=== PATIENT | female | born 1955 | race Caucasian/White ===

== ENCOUNTER 2017-02-13 16:11 | Emergency (ER) | payer SELFPAY ==
[~2017-02-13] VITALS: Ht 165.1 cm; Wt 43.1 kg
[~2017-02-13 16:11] MED LIST: ALBU2.5V36 PUFF; CEFU250 PO; CIP500 PO; CYC10 PO; HYDR-4309 PO; IBU600 PO; IBUP200C71 PO; IPRA14.76 IH; KET10 PO; LAN30PT PO; LOR5 PO; LOR5/325 PO; MULT-775 PO; MULT1CAP59 PO; NICO-180 TD; NO ROUTINE MEDS; OMEP-114 PO; ONDA4TAB PO; PANT40TA13 PO; PANT40TA65 PO; PER PO; PRED-314 PO; PRO25 PO; [UNRECOGNIZED DRUG - CODE] PO; [UNRECOGNIZED DRUG - CODE] TD
[2017-02-13 16:36] VITALS: BP 129/76
[2017-02-13] MEDS ORDERED: PENI-24 PO (16:40)
--- NOTE | 2017-02-13 16:55 | EKG ---
FACILITY: [facility] PATIENT NAME: ROMELIA AWAN : [id number] MR: [id number] V: [id number] EXAM DATE: ORDERING PHYSICIAN: JENNY VEGA TECHNOLOGIST: YUSUF Al Reason : SOB Blood Pressure : / mmHG Vent. Rate : 107 BPM Atrial Rate : 107 BPM P-R Int : 180 ms QRS Dur : 092 ms QT Int : 326 ms P-R-T Axes : 088 110 084 degrees QTc Int : 435 ms Sinus tachycardia Right axis deviation Pulmonary disease pattern Abnormal ECG When compared with ECG of 06-AUG-2016 14:57, Relatively unchanged Confirmed by TORRES HAQ ([id number]) on 02/14/2017 10:14:03 PM Referred By: SILVIA Confirmed By:TORRES HAQ
[2017-02-13 17:18] LABS: PLATELET COUNT, AUTOMATED 247 K/uL (150-450)
[2017-02-13] MEDS ORDERED: NS 0.9% 50 ML VIAL 100 ML ONE (17:51)
[2017-02-13] MEDS ORDERED: IOPAMIDOL 76% 75 ML INFUS BTL 75 ML ONE (17:51)
[2017-02-13] MEDS ORDERED: MORPHINE(*) 4 MG/ML SDV IVP ONE (18:55)
[2017-02-13] MEDS ORDERED: MORPHINE 4 MG/ML SYR IVP ONE (19:15)
--- NOTE | 2017-02-13 19:30 | ER Report ---
History and Physical Hx. of Stated Complaint: PT HAVING TROUBLE BREATHING, PAIN IN CHEST L SIDE, FELL SEVERAL DAYS AGO (GENET MEAD MD) Time Seen By MD: 16:08 (JENNY VEGA MD) HPI/ROS CHIEF COMPLAINT: Rib pain after fall HISTORY OF PRESENT ILLNESS: 62-year-old female history chronic pancreatitis presents with rib pain after a fall no head or neck trauma no loss consciousness complaints noted REVIEW OF SYSTEMS: Respiratory: No cough, no dyspnea. Cardiovascular: No chest pain, no palpitations. Gastrointestinal: No vomiting, no abdominal pain. Musculoskeletal: No back pain. Remainder of the 14 system rev: Yes (JENNY VEGA MD) Allergies: Coded Allergies: No Known Drug Allergies (Verified , 08/06/16) Home Meds Active Scripts Hydrocodone Bit/Acetaminophen (HYDROCODON-ACETAMINOPHEN 5-325) 1 Each Tablet, 1 EACH PO Q4H Y for PAIN, #20 TAB 0 Refills Prov:GENET MEAD MD 02/13/17 Reported Medications Penicillin V Potassium 500 Mg Tab (PENICILLIN V POTASSIUM 500 MG TAB) 500 Mg Tablet, 500 MG PO, TAB 02/13/17 Multivitamin (MULTIVITAMINS) 1 Each Capsule, 1 EACH PO QDAY, CAPSULE 08/06/16 Reviewed Nurses Notes: Yes Old Medical Records Reviewed: Yes (JENNY VEGA MD) Hx Smoking: Yes (1/2PPD) Smoking Status: Current: Every Day Smoker Hx Substance Use Disorder: No Hx Alcohol Use: Yes (GENET MEAD MD) Physical Exam General Appearance: The patient is alert, has no immediate need for airway protection and no current signs of toxicity. [ ] Eyes: Pupils equal and round no injection. Respiratory: Chest is non tender, lungs are clear to auscultation. Cardiac: regular rate and rhythm [ ] Gastrointestinal: Abdomen is soft and non tender, no masses, bowel sounds normal. Musculoskeletal: Neck: Neck is supple and non tender. Extremities have full range of motion and are non tender. Skin: No rashes or lesions. [ ] DIFFERENTIAL DIAGNOSIS: After history and physical exam differential diagnosis was considered for rib fracture versus contusion (JENNY VEGA MD) Medical Decision Making Data Points Laboratory Hematology Test 02/13/17 17:09 02/13/17 19:35 Red Blood Count 4.03 M/uL (4.17-5.56) Mean Corpuscular Volume 105.0 fL (80.0-96.0) Mean Corpuscular Hemoglobin 34.8 pg (26.0-33.0) Mean Corpuscular Hemoglobin Concent 33.2 g/dL (32.0-36.0) Red Cell Distribution Width 15.9 % (11.5-14.5) Mean Platelet Volume 6.7 fL (7.2-11.1) Neutrophils (%) (Auto) 82.1 % (39.4-72.5) Lymphocytes (%) (Auto) 5.1 % (17.6-49.6) Monocytes (%) (Auto) 12.3 % (4.1-12.4) Eosinophils (%) (Auto) 0.3 % (0.4-6.7) Basophils (%) (Auto) 0.2 % (0.3-1.4) Nucleated RBC Relative Count (auto) 0.0 /100WBC Neutrophils # (Auto) 6.3 K/uL (2.0-7.4) Lymphocytes # (Auto) 0.4 K/uL (1.3-3.6) Monocytes # (Auto) 0.9 K/uL (0.3-1.0) Eosinophils # (Auto) 0.0 K/uL (0.0-0.5) Basophils # (Auto) 0.0 K/uL (0.0-0.1) Nucleated RBC Absolute Count (auto) 0.00 K/uL Peripheral Blood Smear No Y/N D-Dimer Quantitative (PE/DVT) 1.55 ug/ml (0-0.50) Sodium Level 140 mmol/L (137-145) Potassium Level 3.9 mmol/L (3.5-5.0) Chloride Level 106 mmol/L (98-107) Carbon Dioxide Level 24 mmol/L (22-31) Blood Urea Nitrogen 5 mg/dl (7-18) Creatinine 0.60 mg/dl (0.52-1.04) Glomerular Filtration Rate Calc > 60.0 Random Glucose 110 mg/dl (75-110) Calcium Level 9.5 mg/dl (8.4-10.2) Total Bilirubin 0.4 mg/dl (0.2-1.3) Aspartate Amino Transf (AST/SGOT) 25 U/L (0-35) Alanine Aminotransferase (ALT/SGPT) 39 U/L (0-56) Alkaline Phosphatase 201 U/L (0-126) Troponin I < 0.012 ng/ml B-Type Natriuretic Peptide 81 pg/ml (0-100) Total Protein 7.2 gm/dl (6.3-8.2) Albumin 3.4 g/dl (3.5-5.0) Urine Color Straw Urine Clarity Clear Urine pH 6.0 pH (4.8-9.5) Urine Specific [place] 1.026 Urine Protein Negative mg/dL (NEGATIVE) Urine Glucose (UA) Negative mg/dL (NEGATIVE) Urine Ketones Negative mg/dL (NEGATIVE) Urine Blood Negative (NEGATIVE) Urine Nitrite Negative (NEGATIVE) Urine Bilirubin Negative (NEGATIVE) Urine Urobilinogen Negative mg/dL (0.2-1.9) Urine Leukocyte Esterase Negative (NEGATIVE) Urine RBC None /HPF (0-2/HPF) Urine WBC 4 /HPF (0-5/HPF) Urine Squamous Epithelial Cells Few /LPF (</=FEW) Urine Bacteria Negative /HPF (NONE-FEW) Urine Mucus None /HPF (NONE-FEW) Chemistry Test 02/13/17 17:09 02/13/17 19:35 White Blood Count 7.6 k/uL (4.5-11.0) Red Blood Count 4.03 M/uL (4.17-5.56) Hemoglobin 14.0 g/dL (12.0-16.0) Hematocrit 42.3 % (34.0-47.0) Mean Corpuscular Volume 105.0 fL (80.0-96.0) Mean Corpuscular Hemoglobin 34.8 pg (26.0-33.0) Mean Corpuscular Hemoglobin Concent 33.2 g/dL (32.0-36.0) Red Cell Distribution Width 15.9 % (11.5-14.5) Platelet Count 247 K/uL (150-450) Mean Platelet Volume 6.7 fL (7.2-11.1) Neutrophils (%) (Auto) 82.1 % (39.4-72.5) Lymphocytes (%) (Auto) 5.1 % (17.6-49.6) Monocytes (%) (Auto) 12.3 % (4.1-12.4) Eosinophils (%) (Auto) 0.3 % (0.4-6.7) Basophils (%) (Auto) 0.2 % (0.3-1.4) Nucleated RBC Relative Count (auto) 0.0 /100WBC Neutrophils # (Auto) 6.3 K/uL (2.0-7.4) Lymphocytes # (Auto) 0.4 K/uL (1.3-3.6) Monocytes # (Auto) 0.9 K/uL (0.3-1.0) Eosinophils # (Auto) 0.0 K/uL (0.0-0.5) Basophils # (Auto) 0.0 K/uL (0.0-0.1) Nucleated RBC Absolute Count (auto) 0.00 K/uL Peripheral Blood Smear No Y/N D-Dimer Quantitative (PE/DVT) 1.55 ug/ml (0-0.50) Glomerular Filtration Rate Calc > 60.0 Calcium Level 9.5 mg/dl (8.4-10.2) Total Bilirubin 0.4 mg/dl (0.2-1.3) Aspartate Amino Transf (AST/SGOT) 25 U/L (0-35) Alanine Aminotransferase (ALT/SGPT) 39 U/L (0-56) Alkaline Phosphatase 201 U/L (0-126) Troponin I < 0.012 ng/ml B-Type Natriuretic Peptide 81 pg/ml (0-100) Total Protein 7.2 gm/dl (6.3-8.2) Albumin 3.4 g/dl (3.5-5.0) Urine Color Straw Urine Clarity Clear Urine pH 6.0 pH (4.8-9.5) Urine Specific [place] 1.026 Urine Protein Negative mg/dL (NEGATIVE) Urine Glucose (UA) Negative mg/dL (NEGATIVE) Urine Ketones Negative mg/dL (NEGATIVE) Urine Blood Negative (NEGATIVE) Urine Nitrite Negative (NEGATIVE) Urine Bilirubin Negative (NEGATIVE) Urine Urobilinogen Negative mg/dL (0.2-1.9) Urine Leukocyte Esterase Negative (NEGATIVE) Urine RBC None /HPF (0-2/HPF) Urine WBC 4 /HPF (0-5/HPF) Urine Squamous Epithelial Cells Few /LPF (</=FEW) Urine Bacteria Negative /HPF (NONE-FEW) Urine Mucus None /HPF (NONE-FEW) Coagulation Test 02/13/17 17:09 D-Dimer Quantitative (PE/DVT) 1.55 ug/ml Urinalysis Test 02/13/17 19:35 Urine Color Straw Urine Clarity Clear Urine pH 6.0 pH (4.8-9.5) Urine Specific [place] 1.026 Urine Protein Negative mg/dL (NEGATIVE) Urine Glucose (UA) Negative mg/dL (NEGATIVE) Urine Ketones Negative mg/dL (NEGATIVE) Urine Blood Negative (NEGATIVE) Urine Nitrite Negative (NEGATIVE) Urine Bilirubin Negative (NEGATIVE) Urine Urobilinogen Negative mg/dL (0.2-1.9) Urine Leukocyte Esterase Negative (NEGATIVE) Urine RBC None /HPF (0-2/HPF) Urine WBC 4 /HPF (0-5/HPF) Urine Squamous Epithelial Cells Few /LPF (</=FEW) Urine Bacteria Negative /HPF (NONE-FEW) Urine Mucus None /HPF (NONE-FEW) (JENNY EVGA MD) EKG/Imaging Imaging EXAMINATION: Chest 2 Views HISTORY: Shortness of breath COMPARISON: 08/06/2016. FINDINGS: The lungs are hyperinflated with emphysematous change and mild chronic interstitial prominence. No focal consolidation or pleural effusion. No pneumothorax. Normal heart size and pulmonary vascularity. Aortic calcification. No acute osseous findings in the chest. IMPRESSION: 1. No evidence of acute cardiopulmonary disease. 2. Stable chronic changes of COPD. Report Dictated By: Royce Pearl MD at 02/13/2017 7:30 PM EXAMINATION: CTA of the chest with IV contrast HISTORY: Left-sided rib pain. Chest pain and shortness of breath. TECHNIQUE: Pulmonary embolus protocol - Thin axial CT images of the chest were obtained with IV contrast during maximal pulmonary arterial opacification. Reconstruction of the source data includes multiplanar 2D coronal and sagittal reconstructed images, and 3D coronal and sagittal MIP images. Telecommunications Clerk images have been stored on PACS. One of the following dose optimization techniques was utilized in the performance of this exam: Automated exposure control; adjustment of the mA and/ or kV according to the patient's size; or use of an iterative reconstruction technique. Specific details can be referenced in the facility's radiology CT exam operational policy. Contrast: 75 mL of IV Isovue-370. COMPARISON: 04/08/2015. FINDINGS: Pulmonary arteries: The pulmonary arteries are well opacified, without suspicious filling defect. Heart, aorta, and great vessels: Normal caliber thoracic aorta. Normal heart size. No pericardial effusion. Lungs and pleura: Moderate changes of centrilobular emphysema in the mid and upper lungs. There is slight scarring or atelectasis along the posterior aspect of the left upper lobe and lingula. No suspicious focal consolidation. No pleural effusion or pneumothorax. Single 4 mm subpleural nodule in the left lower lobe. On the previous exam there was a larger 6 mm nodule in this location , and this may represent a small residual postinflammatory focus. Mediastinum and mary grace: Negative. Visualized upper abdomen: Partially visualized changes of chronic calcific pancreatitis with multiple parenchymal calcifications. There is some increased peripancreatic stranding along the visualized pancreatic body and tail. Chest wall: Negative. Bones: No acute osseous findings in the chest. IMPRESSION: 1. No evidence of pulmonary embolism. 2. No other acute findings in the chest. 3. Imaging through the upper abdomen demonstrates changes of chronic calcific pancreatitis. There is some increased stranding along the visualized pancreatic body and tail which should be correlated with any clinical and/or laboratory evidence for superimposed acute pancreatitis. 4. Moderate emphysematous changes in the lungs. 5. A 4 mm nodule in the left lower lobe has decreased in size since 2016 and should be benign. Report Dictated By: Royce Pearl MD at 02/13/2017 7:21 PM (GENET MEAD MD) ED Course/Re-evaluation ED Course I assumed care of this patient at shift change from Dr. Vega. Patient is a 61 year old female with difficulty breathing and left sided chest pain. She did have a fall a few days ago. CTA of the chest was done due to elevated d-dimer. CTA did not show a PE or other acute cardiopulmonary process. There are changes present showing inflammation in the pancreas. She does have chronic pancreatitis with a recent increase in pain. We talked about it and she has pain that has been bothering her, but expected due to recent dietary intake. She did not think further workup was needed at this time as she does deal with this frequently. The chest pain could be from her recent fall or could be inflammatory pleuritic. Will treat with pain medicine and give time to improve. Decision to Disposition Date: Feb 13, 2017 Decision to Disposition Time: 19:43 (GENET MEAD MD) ED Course Patient endorsed to Dr. Mora smart Decision to Disposition Date: Feb 27, 2017 Decision to Disposition Time: 16:09 (JENNY VEGA MD) Depart Departure Impression: Primary Impression: Chest wall pain Additional Impression: Chronic pancreatitis Condition: Improved Disposition: HOME OR SELF-CARE New Scripts Hydrocodone Bit/Acetaminophen (HYDROCODON-ACETAMINOPHEN 5-325) 1 Each Tablet 1 EACH PO Q4H Y for PAIN, #20 TAB 0 Refills Prov: GENET MEAD MD 02/13/17 Patient Instructions: Chest Wall Pain (ED), Pancreatitis (ED) Additional Instructions: Chest wall pain, either inflammatory or related to your recent fall. Take Lortab 5/325 every 4 hours as needed for pain. For your chronic recurrent pancreatitis, treat as you usually do when this flares up. Pain medications Clear liquids for 24 hours and then slowly advance diet. Return for evaluation if not improving as expected. Problem Qualifiers Additional Impression: Chronic pancreatitis Pancreatitis type: unspecified pancreatitis type Qualified Codes: K86.1 - Other chronic pancreatitis GENET MEAD MD Feb 13, 2017 19:30 JENNY VEGA MD Feb 27, 2017 16:10
--- NOTE | 2017-02-13 19:35 | RADIOLOGY IMAGING REPORT ---
FACILITY: [facility] PATIENT NAME: Lisa Alfredo : 1955 MR: [id number] V: [id number] EXAM DATE: ORDERING PHYSICIAN: JENNY VEGA TECHNOLOGIST: [place] [facility] [place] : 1955 Visit/Account:[id number] Date of Sevice: 02/13/2017 EXAMINATION: Chest 2 Views HISTORY: Shortness of breath COMPARISON: 08/06/2016. FINDINGS: The lungs are hyperinflated with emphysematous change and mild chronic interstitial prominence. No fo john paul consolidation or pleural effusion. No pneumothorax. Normal heart size and pulmonary vascularity. Aortic calcification. No acute osseous findings in the chest. IMPRESSION: 1. No evidence of acute cardiopulmonary disease. 2. Stable chronic changes of COPD. Report Dictated By: Royce Pearl MD at 02/13/2017 7:30 PM Report E-Signed By: Royce Pearl MD at 02/13/2017 7:31 PM WSN:[id number]
--- NOTE | 2017-02-13 19:36 | RADIOLOGY IMAGING REPORT ---
FACILITY: [facility] - [place] PATIENT NAME: Lisa Alfredo : 1955 MR: [id number] V: [id number] EXAM DATE: ORDERING PHYSICIAN: JENNY VEGA TECHNOLOGIST: Location: [facility] [place] Patient: Lisa Alfredo : 1955 Visit/Account:[id number] Date of Sevice: 02/13/2017 EXAMINATION: CTA of the chest with IV contrast HISTORY: Left-sided rib pain. Chest pain and shortness of breath. TECHNIQUE: Pulmonary embolus protocol - Thin axial CT images of the chest were obtained with IV con trast during maximal pulmonary arterial opacification. Reconstruction of the source data includes mul tiplanar 2D coronal and sagittal reconstructed images, and 3D coronal and sagittal MIP images. Repres entative images have been stored on PACS. One of the following dose optimization techniques was utilized in the performance of this exam: Autom ated exposure control; adjustment of the mA and/or kV according to the patient's size; or use of an i terative reconstruction technique. Specific details can be referenced in the facility's radiology C T exam operational policy. Contrast: 75 mL of IV Isovue-370. COMPARISON: 04/08/2015. FINDINGS: Pulmonary arteries: The pulmonary arteries are well opacified, without suspicious filling defect. Heart, aorta, and great vessels: Normal caliber thoracic aorta. Normal heart size. No pericardial ef fusion. Lungs and pleura: Moderate changes of centrilobular emphysema in the mid and upper lungs. There is s light scarring or atelectasis along the posterior aspect of the left upper lobe and lingula. No suspi cious focal consolidation. No pleural effusion or pneumothorax. Single 4 mm subpleural nodule in the left lower lobe. On the previous exam there was a larger 6 mm nodule in this location, and this may r epresent a small residual postinflammatory focus. Mediastinum and mary grace: Negative. Visualized upper abdomen: Partially visualized changes of chronic calcific pancreatitis with multipl e parenchymal calcifications. There is some increased peripancreatic stranding along the visualized p ancreatic body and tail. Chest wall: Negative. Bones: No acute osseous findings in the chest. IMPRESSION: 1. No evidence of pulmonary embolism. 2. No other acute findings in the chest. 3. Imaging through the upper abdomen demonstrates changes of chronic calcific pancreatitis. There is some increased stranding along the visualized pancreatic body and tail which should be correlated wit h any clinical and/or laboratory evidence for superimposed acute pancreatitis. 4. Moderate emphysematous changes in the lungs. 5. A 4 mm nodule in the left lower lobe has decreased in size since 2016 and should be benign. Report Dictated By: Royce Pearl MD at 02/13/2017 7:21 PM Report E-Signed By: Royce Pearl MD at 02/13/2017 7:30 PM WSN:[id number]
[2017-02-13] MEDS ORDERED: APAP/HYDROCODONE 325/5 TAB PO ONE (19:45)
[2017-02-13] MEDS ORDERED: LOR5/325 PO (19:46)
== END 2017-02-13 20:07 | disposition home or self-care (01) ==
LOC: ER 16:50
DX: R07.89 Other chest pain (principal); K86.1 Other chronic pancreatitis
CPT/HCPCS: 36415; 71020; 71275; 81001; 83880; 84484; 85025; 85379; 93005; 96374; 99284; J2270; J7050; Q9967; 82040; 82247; 82310; 82374; 82435; 82565; 82947; 84075; 84132; 84155; 84295; 84450; 84460; 84520

== ENCOUNTER → 2017-06-25 | Outpatient (REF) ==
[~2017-06-25] MED LIST changes: +ALBU8.5H IH; +FLUT1DIS28 IH; +IOPAMIDOL 76% 75 ML INFUS BTL 75 ML ONE; +PENI-24 PO; +PROM-110 PO; +SIMV-54 PO; +TRAM-420 PO
--- NOTE | 2017-06-25 09:42 | RADIOLOGY IMAGING REPORT ---
[place] [facility] [place] NAME[place] Lisa Alfredo : 1955 MR: [id number] V: [id number] EXAM DATE: ORDERING PHYSICIAN: GLORIA ESCALERA TECHNOLOGIST: Location: [facility] - [place] Patient: Lisa Alfredo : 1955 Visit/Account:[id number] Date of Sevice: 06/25/2017 EXAMINATION: CT Chest With Contrast CT Abdomen With Contrast CT Pelvis With Contrast 06/25/2017 9:30 AM HISTORY: Chronic abdominal pain TECHNIQUE: Spiral scan was obtained through the chest, abdomen and pelvis during injection of nonio eric iodinated intravenous contrast. Contrast: 75 mL of IV Isovue 370. One of the following dose optimization techniques was utilized in the performance of this exam: Autom ated exposure control; adjustment of the mA and/or kV according to the patient's size; or use of an i terative reconstruction technique. Specific details can be referenced in the facility's radiology C T exam operational policy. COMPARISON STUDIES: CTA chest 02/13/2017, CT abdomen and pelvis 08/06/2016. FINDINGS: CHEST: Lungs / pleura: Background emphysema with an upper lung predominance which is likely centrilobular. S table scattered pulmonary micronodules. Stable scarring in the lingula adjacent to the interlobar fis sure and in the medial right middle lobe and the left base. Mediastinum / mary grace: negative Heart / pericardium: negative Vessels: Atherosclerosis. No substantial visible coronary calcifications. Musculoskeletal / Body wall: Old anterior rib fractures. Degenerative changes in the spine. Lymph node assessment: negative Lower neck: Left lobe of the thyroid is smaller than the right. ABDOMEN AND PELVIS: Liver / biliary: Severe fatty liver density. Prior cholecystectomy. Pancreas: Calcifications of chronic pancreatitis. Subcentimeter cystic area in the pancreatic head wa s not present last July. There is haziness and peripancreatic fat. No organized pseudocyst. No signif icant acute thickening of the mesenteric root or lateral conal fascial planes. Spleen: negative Adrenal glands: negative Kidneys / retroperitoneum: Renal cortical cysts. Right kidney is mildly ptotic and rotated. No obstru ction. Pelvic structures: Bladder is fairly full but otherwise unremarkable. No uterine or adnexal pathol ogy evident. Bowel / peritoneum / mesenteries: Stomach is full with liquid and gas. There is also fluid in the cathie cending duodenum with transition in caliber across the transverse duodenum. Some fluid is also presen t in the thoracic esophagus. Small bowel is not distended. Diverticulosis of the distal colon. No asc ites. No free air. Vessels: Atherosclerosis. 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 Musculoskeletal / Body wall: Degenerative changes in the spine. Previous ORIF proximal right femur. Lymph node assessment: negative IMPRESSION: 1. Findings of chronic pancreatitis. Stranding around the pancreas male be chronic: Acute exacerbatio ns hard to exclude confidently. 2. Subcentimeter cystic focus in the pancreatic head is new comparing with previous. Given the chroni c pancreatitis, evolving postinflammatory changes/pseudocyst would be favored although cystic neoplas m cannot be excluded without surveillance. 3. Stomach is full with fluid and gas and there is also fluid in the duodenum with transition as it c rosses midline below the pancreas. A component of functional obstruction across the transverse duoden um may be present. 4. No significant acute finding in the chest. Report Dictated By: Jason Matias MD at 06/25/2017 9:22 AM Report E-Signed By: Jason Matias MD at 06/25/2017 9:36 AM WSN:[id number]
== END ==
LOC: CT 01:54
PROVIDERS: ATTEND Nurse Practitioner
DX: K86.1 Other chronic pancreatitis (principal)
CPT/HCPCS: 71260; 74177; Q9967

== ENCOUNTER 2017-07-31 02:44 | Day surgery (SDC) | payer SELFPAY ==
[~2017-07-31] VITALS: Ht 162.6 cm; Wt 33.1 kg
[~2017-07-31 02:44] MED LIST changes: +BIOT250012 PO; +CHOL10005 PO; -IOPAMIDOL 76% 75 ML INFUS BTL 75 ML ONE; +MULT-27 PO; +POTA99TA6 PO; +SIMV-49 PO
[2017-07-31] MEDS ORDERED: PROPOFOL EMUL(*) 10MG/ML 20 ML 20 ML ONE (07:11)
[2017-07-31] MEDS ORDERED: NORMOSOL R SOLN(*) 1000 ML BAG 1,000 ML IV PRN (10:00)
[2017-07-31] MEDS ORDERED: LIDOCAINE/SOD BICARB 8.4% SYR ID ONE (10:00)
[2017-07-31 10:14] VITALS: BP 108/94
[2017-07-31 12:34] VITALS: BP 107/73
--- NOTE | 2017-07-31 12:36 | Short(Outpt) Discharge Summary ---
Discharge Summary Reason for Hosp/Final Diag: (1) Elevated carcinoembryonic antigen Status: Chronic Hospital Course & Plan: Colonoscopy completed without problems. Normal colonoscopy. (2) Abnormal weight loss Status: Chronic Departure Discharge to: Home, Self Care Discharge Instructions Home Meds Reported Medications Cholecalciferol (Vitamin D3) (VITAMIN D3) 1,000 Unit Tablet, 1 TAB PO QDAY, TAB 07/23/17 Biotin (BIOTIN) 2,500 Mcg Capsule, 5000 MCG PO QDAY, CAPSULE 07/23/17 Potassium Gluconate (POTASSIUM) 99 Mg Tablet, 1 TAB PO QDAY 07/23/17 Ibuprofen (IBUPROFEN) 200 Mg Capsule, 3 CAP PO QAM, CAPSULE 07/23/17 Simvastatin (SIMVASTATIN) 20 Mg Tablet, 1 TAB PO HS, TAB 07/23/17 Mu-Vits-Min Th/Lycopene/Lutein (CENTRUM SILVER TABLET) 1 Each Tablet, 1 TAB PO 07/23/17 Promethazine Hcl (PROMETHAZINE HCL) 25 Mg Tablet, 25 MG PO QID for Nausea, TAB 06/24/17 Pantoprazole Sodium (PANTOPRAZOLE SODIUM) 40 Mg Tablet.dr, 40 MG PO QDAY, TAB.SR 06/24/17 Fluticasone/Salmeterol (ADVAIR 250-50 DISKUS) 1 Each Disk.w.dev, 1 EACH IH BID 06/24/17 Diet: Regular Activity: As Tolerated Special Instructions: Your colonoscopy was completed without any problems and you prep was excellent (Good Job!!). I didn't find any polyps, cancers, inflammation, or other abnormalities. Follow up with you primary care provider and the oncologist in the next 2 weeks or as scheduled if you already have appointments. EVA WINTERS MD Jul 31, 2017 12:35
[2017-07-31 12:45] VITALS: BP 122/82
[2017-07-31 12:56] VITALS: BP 127/89
[2017-07-31 12:58] VITALS: BP 138/89
== END 2017-07-31 13:11 | disposition home or self-care (01) ==
LOC: OR 02:44
PROVIDERS: ATTEND Surgery
DX: Z12.11 Encounter for screening for malignant neoplasm of colon (principal); E78.5 Hyperlipidemia, unspecified; K21.9 Gastro-esophageal reflux disease without esophagitis; J44.9 Chronic obstructive pulmonary disease, unspecified; E46 Unspecified protein-calorie malnutrition; Z68.1 Body mass index [BMI] 19.9 or less, adult; F17.210 Nicotine dependence, cigarettes, uncomplicated; Z90.49 Acquired absence of other specified parts of digestive tract
CPT/HCPCS: 00812; 45378; J2704

== ENCOUNTER 2017-08-08 13:28 | Outpatient (RCR) | payer SELFPAY ==
[2017-06-20 09:03] VITALS: BP 119/81
--- NOTE | 2017-06-20 16:25 | ONCOLOGY CONSULTATION ---
EVENT DATE: June 20, 2017 DIAGNOSES 1. Weight loss. 2. Recurrent pancreatitis. REFERRING PHYSICIAN JULY Keating REASON FOR THE CONSULTATION Evaluation and management of possible cancer with high CEA at 7. HISTORY OF PRESENT ILLNESS Patient is a 62-year-old female who had a history of colonoscopy two years ago, which as per patient was normal. She is followed by Kylie Fountain, her primary care provider, and the patient was found to have weight loss and the patient attributed that to loss of her teeth, but as per patient her appetite is okay. She had chronic abdominal pain and multiple episodes of pancreatitis started July 2016. She had a CT scan done on August 06, 2016 which confirmed findings consistent with pancreatitis, but she continues to have severe abdominal pain and anorexia. In her workup patient had CEA done on May 28, 2017 which came back high at 7. Patient is a smoker. She is currently on half a pack per day, but previously before two months she was smoking two packs a day for nearly 30 years. She was found to continue to have loss of weight and that is why patient was referred for further evaluation and management. PAST MEDICAL HISTORY 1. GERD. 2. Recurrent pancreatitis. 3. Hypercholesterolemia. PAST SURGICAL HISTORY 1. Three C-sections between 1975 and 1989. 2. Cholecystectomy 2013. 3. Right shoulder surgery. 4. Tonsillectomy. SOCIAL HISTORY Patient is with three children. She is a homemaker. She smoked two packs a day for 30 years, currently on half a pack per day for the last two months. She drinks occasionally. 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 Denies any abuse of street drugs. CURRENT MEDICATIONS 1. Advair 250/50 one puff b.i.d. 2. ProAir MDI two puffs q.i.d. p.r.n. 3. Simvastatin 20 mg q.day. 4. Protonix 40 mg once daily. 5. Promethazine q.i.d. p.r.n. for nausea and vomiting. 6. Tramadol 50 mg one to two tablets for abdominal pain p.r.n. ALLERGIES No known drug allergies. REVIEW OF SYSTEMS CONSTITUTIONAL: She has occasional fever. She has also loss of appetite and weight. She cannot eat because she does not have any teeth currently, and the patient is working to have dentures. No chills or sweating. No recent infection. HEENT: Ears: No tinnitus or hearing problem. Nose: She has nasal discharge. No epistaxis. Throat: No sore throat or mouth ulcers. Eyes: No diplopia or visual changes. RESPIRATORY: She has cough with expectoration and shortness of breath. No hemoptysis. CARDIOVASCULAR: No chest pain, orthopnea, or paroxysmal nocturnal dyspnea (PND) . No edema. No palpitations. GASTROINTESTINAL: No nausea or vomiting. No diarrhea or constipation. No change in bowel movements. No heartburn or swallowing difficulties. No abdominal pain. No jaundice. No hematemesis, melena or rectal bleeding. GENITOURINARY: No hematuria or dysuria. MUSCULOSKELETAL: She has pain in the knees. NEUROLOGICAL: No tingling or numbness in the hands or feet. No headaches or convulsions. HEMATOLOGIC/LYMPHATIC: She bruises easily. No bleeding. She is weak, tired and fatigued. No enlarged lymph nodes. SKIN: No skin rash or lumps. PSYCHIATRIC: No anxiety or depression. PHYSICAL EXAMINATION GENERAL APPEARANCE: Patient actually looks cachectic. VITAL SIGNS: Blood pressure 119/81, pulse 120 per minute, respirations 16 per minute, temperature 97, pulse ox 90% on room air. HEENT: Head: Atraumatic. No sinus tenderness to palpation. Eyes: No icterus or conjunctivitis. Mouth and Throat: No oral thrush or mucositis. NECK: Supple. No cervical or supraclavicular lymphadenopathy. LUNGS: Clear to auscultation and percussion bilaterally. HEART: Regular rate and rhythm. No gallops, murmurs, clicks or rubs. ABDOMEN: Soft and lax. No tenderness. No hepatosplenomegaly. No masses. EXTREMITIES: No cyanosis, clubbing or edema. LYMPHATICS: No peripheral lymphadenopathy. NEUROLOGICAL: Conscious, alert and oriented times three. No focal motor or sensory deficits. PSYCHIATRIC: Mood and affect appear normal. SKIN: No skin rash, bruise or purpuric eruption. ASSESSMENT 1. Weight loss, could be due to her loss of teeth. The patient cannot eat well because of that, but with her CEA high, I am planning to rule out the possibility of cancer. CEA is not a specific marker for only colon cancer, but it can be elevated with any adenocarcinoma including lung, breast, pancreatic cancer or other adenocarcinomas. I am planning to repeat her CBC, chem panel, CEA, and CA 19-9 which is a marker for pancreatic cancer. I am planning to refer the patient to Dr. Rice for screening colonoscopy, and I am planning to get a CT chest, abdomen and pelvis with IV and oral contrast. Further evaluation and management will depend on those results. I will see the patient in a week after we get those studies done. I explained that to the patient. She is agreeable with plan of management. 2. History of recurrent pancreatitis. 3. Tobacco abuse. 4. Gastroesophageal reflux disease. 5. Chronic obstructive pulmonary disease. PLAN 1. CBC, chem panel. 2. CA 19-[address] chest, abdomen and pelvis with IV and oral contrast. 4. Referral to Dr. Rice for colonoscopy. 5. Patient to return after the above for further evaluation and management. 6. Patient is to contact us for any new concern or complaints MTDD
[2017-08-08 13:46] VITALS: BP 92/68
--- NOTE | 2017-08-08 21:40 | ONCOLOGY FOLLOW UP NOTE ---
EVENT DATE: August 08, 2017 DIAGNOSES 1. Weight loss. 2. Recurrent pancreatitis. CHIEF COMPLAINT Patient is here today for followup of her weight loss. HEMATOLOGY/ONCOLOGY HISTORY Patient is a 62-year-old female who had a history of colonoscopy two years ago, which as per patient was normal. She is followed by Kylie Fountain, her primary care provider, and the patient was found to have weight loss and the patient attributed that to loss of her teeth, but as per patient her appetite is okay. She had chronic abdominal pain and multiple episodes of pancreatitis started July 2016. She had a CT scan done on August 06, 2016 which confirmed findings consistent with pancreatitis, but she continues to have severe abdominal pain and anorexia. In her workup patient had CEA done on May 28, 2017 which came back high at 7. Patient is a smoker. She is currently on half a pack per day, but previously before two months she was smoking two packs a day for nearly 30 years. She was found to continue to have loss of weight and that is why patient was referred for further evaluation and management. Repeat CEA was high at 8. Patient had a colonoscopy by Dr. Rice on July 31, 2017 which was reported as normal. CT chest, abdomen and pelvis on June 25, 2017 showed evidence of chronic pancreatitis with less than 1 cm cystic focus at the pancreatic head which is new. HISTORY OF PRESENT ILLNESS Patient is here today for followup of her weight loss. She is complaining of cough with some phlegm and wheezing. She bruises easily. Other than that she is really doing very well. PAST MEDICAL HISTORY 1. GERD. 2. Recurrent pancreatitis. 3. Hypercholesterolemia. PAST SURGICAL HISTORY 1. Three C-sections between 1975 and 1989. 2. Cholecystectomy 2013. 3. Right shoulder surgery. 4. Tonsillectomy. SOCIAL HISTORY Patient is with three children. She is a homemaker. She smoked two packs a day for 30 years, currently on half a pack per day for the last two months. She drinks occasionally. 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 Denies any abuse of street drugs. CURRENT MEDICATIONS 1. Advair 250/50 one puff b.i.d. 2. ProAir MDI two puffs q.i.d. p.r.n. 3. Simvastatin 20 mg q.day. 4. Protonix 40 mg once daily. 5. Promethazine q.i.d. p.r.n. for nausea and vomiting. 6. Tramadol 50 mg one to two tablets for abdominal pain p.r.n. ALLERGIES No known drug allergies. REVIEW OF SYSTEMS CONSTITUTIONAL: She has occasional fever. She has also loss of appetite and weight. She cannot eat because she does not have any teeth currently, and the patient is working to have dentures. No chills or sweating. No recent infection. HEENT: Ears: No tinnitus or hearing problem. Nose: She has nasal discharge. No epistaxis. Throat: No sore throat or mouth ulcers. Eyes: No diplopia or visual changes. RESPIRATORY: She has cough with expectoration and wheezing. No hemoptysis. CARDIOVASCULAR: No chest pain, orthopnea, or paroxysmal nocturnal dyspnea (PND) . No edema. No palpitations. GASTROINTESTINAL: No nausea or vomiting. No diarrhea or constipation. No change in bowel movements. No heartburn or swallowing difficulties. No abdominal pain. No jaundice. No hematemesis, melena or rectal bleeding. GENITOURINARY: No hematuria or dysuria. MUSCULOSKELETAL: She has pain in the knees. NEUROLOGICAL: No tingling or numbness in the hands or feet. No headaches or convulsions. HEMATOLOGIC/LYMPHATIC: She bruises easily. No bleeding. She is weak, tired and fatigued. No enlarged lymph nodes. SKIN: No skin rash or lumps. PSYCHIATRIC: No anxiety or depression. PHYSICAL EXAMINATION GENERAL APPEARANCE: Patient actually looks cachectic. VITAL SIGNS: Blood pressure 92/68, pulse 95 per minute, respirations 16 per minute, temperature 97.5, pulse ox 93% on room air. HEENT: Head: Atraumatic. No sinus tenderness to palpation. Eyes: No icterus or conjunctivitis. Mouth and Throat: No oral thrush or mucositis. NECK: Supple. No cervical or supraclavicular lymphadenopathy. LUNGS: Clear to auscultation and percussion bilaterally. HEART: Regular rate and rhythm. No gallops, murmurs, clicks or rubs. ABDOMEN: Soft and lax. No tenderness. No hepatosplenomegaly. No masses. EXTREMITIES: No cyanosis, clubbing or edema. LYMPHATICS: No peripheral lymphadenopathy. NEUROLOGICAL: Conscious, alert and oriented times three. No focal motor or sensory deficits. PSYCHIATRIC: Mood and affect appear normal. SKIN: No skin rash, bruise or purpuric eruption. DIAGNOSTIC DATA Colonoscopy on July 31, [address] chest, abdomen and pelvis on June 25, 2017 showed evidence of chronic pancreatitis with essential than 1 cm cystic focus in the pancreatic head which is new. ASSESSMENT 1. Weight loss, could be due to loss of her teeth. The patient cannot eat well because of that, but because her CEA was high, patient was sent for colonoscopy, and her colonoscopy done on July 31, [address] chest , abdomen and pelvis done on June 25, 2017 showed evidence of chronic pancreatitis with less than 1 cm cystic focus at the pancreatic head which is new. On asking the patient, she drinks about two drinks of vodka per week. Given this information, I am planning to refer the patient to ____ in [place] for endoscopic ultrasound and hopefully biopsy of the cystic lesion at the pancreatic head, which could be due to her chronic pancreatitis, but cystic carcinoma cannot be ruled out. 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 2. History of recurrent pancreatitis. 3. Tobacco abuse. 4. Gastroesophageal reflux disease. 5. Chronic obstructive pulmonary disease. PLAN 1. GI consult with ____ for endoscopic ultrasound of the cystic lesion of the head of the pancreas. 2. Dietary consult. 3. Patient to return after the EUS for further evaluation and management. 4. Patient is to contact us for any new concern or complaints MTDD
== END 2017-08-09 09:29 | disposition home or self-care (01) ==
LOC: ONC 13:28
PROVIDERS: ATTEND Internal Medicine Hematology
DX: R63.4 Abnormal weight loss (principal); K21.9 Gastro-esophageal reflux disease without esophagitis; J44.9 Chronic obstructive pulmonary disease, unspecified; Z72.0 Tobacco use; K85.90 Acute pancreatitis without necrosis or infection, unspecified; F10.21 Alcohol dependence, in remission; R05 Cough; R06.02 Shortness of breath
CPT/HCPCS: 99202; 99212

== ENCOUNTER 2017-09-24 15:49 | Inpatient (IN) | payer SELFPAY ==
[2017-09-24] VITALS (15 sets, daily range): BP systolic 64–94; BP diastolic 44–68
[~2017-09-24] VITALS: Ht 162.6 cm; Wt 32.2 kg
[2017-09-24] MEDS ORDERED: NS(*) 0.9% 500 ML BAG 500 ML IV ONE (16:10)
--- NOTE | 2017-09-24 16:14 | ER Report ---
History and Physical Time Seen By MD: 16:06 Hx. of Stated Complaint: pt reports weakness and fatigue HPI/ROS CHIEF COMPLAINT: Urinary tract infection HISTORY OF PRESENT ILLNESS: This is a 62-year-old female who presents to the emergency department via EMS for worsening urinary tract infection. Patient states she was seen and evaluated by her primary care provider this past Saturday was started on antibiotics for a urinary tract infection however it seems as though it has not improved. The patient arrives in an adult diaper which is soiled with urine, patient has a very strong odor of urine. She is very gaunt-appearing lips are dry, oxygen saturation 89-90%. She feels very fatigued. She's had chills but no fevers. The patient is falling asleep while I' m speaking with her, her mucous membranes are dry and cracked. According to EMS the patient's house was covered and animal feces, very dirty and potentially unsuitable for living. REVIEW OF SYSTEMS: Constitutional: As above. Eyes: No discharge. ENT: No sore throat. Cardiovascular: No chest pain, no palpitations. Respiratory: No cough, no shortness of breath. Gastrointestinal: No abdominal pain, no vomiting. Genitourinary: As above. Musculoskeletal: No back pain. Skin: No rashes. Neurological: As above. Allergies: Coded Allergies: No Known Drug Allergies (Verified , 09/24/17) Home Meds Reported Medications Cholecalciferol (Vitamin D3) (VITAMIN D3) 1,000 Unit Tablet, 1 TAB PO QDAY, TAB 07/23/17 Biotin (BIOTIN) 2,500 Mcg Capsule, 5000 MCG PO QDAY, CAPSULE 07/23/17 Potassium Gluconate (POTASSIUM) 99 Mg Tablet, 1 TAB PO QDAY 07/23/17 Ibuprofen (IBUPROFEN) 200 Mg Capsule, 3 CAP PO QAM, CAPSULE 07/23/17 Simvastatin (SIMVASTATIN) 20 Mg Tablet, 1 TAB PO HS, TAB 07/23/17 Mu-Vits-Min Th/Lycopene/Lutein (CENTRUM SILVER TABLET) 1 Each Tablet, 1 TAB PO 07/23/17 Promethazine Hcl (PROMETHAZINE HCL) 25 Mg Tablet, 25 MG PO QID for Nausea, TAB 06/24/17 Pantoprazole Sodium (PANTOPRAZOLE SODIUM) 40 Mg Tablet.dr, 40 MG PO QDAY, TAB.SR 06/24/17 Fluticasone/Salmeterol (ADVAIR 250-50 DISKUS) 1 Each Disk.w.dev, 1 EACH IH BID 06/24/17 Past Medical/Surgical History The patient has a past medical and surgical history of emphysema, pancreatitis, arthritis, frequent urinary tract infections, right hip replacement, back pain, wears glasses, dentures, appendectomy, right shoulder surgery. Reviewed Nurses Notes: Yes Hx Smoking: Yes (1/2 ppdx 20 yrs ) Smoking Status: Current: Every Day Smoker Hx Substance Use Disorder: No Constitutional Vital Sign - Last 24 Hours 09/24/17 09/24/17 09/24/17 09/24/17 15:50 15:59 16:19 16:30 Temp 97.5 Pulse 90 90 Resp 16 B/P (MAP) 98/71 98/71 (80) 100/69 (79) Pulse Ox 94 95 09/24/17 09/24/17 09/24/17 09/24/17 16:34 16:49 16:54 17:09 Pulse 86 89 86 Pulse Ox 98 98 93 99 09/24/17 09/24/17 09/24/17 09/24/17 17:24 17:30 18:00 18:05 Pulse 85 126 87 Resp 18 B/P (MAP) 86/66 (73) 81/58 (66) Pulse Ox 97 81 96 Intake and Output 09/24/17 09/24/17 09/25/17 15:00 23:00 07:00 Intake Total 1000 ml Balance 1000 ml Physical Exam General Appearance: The patient is alert, has no immediate need for airway protection and no signs of toxicity, very gaunt appearing. Eyes: Pupils equal and round no pallor or injection. Pupils are sluggish. ENT, Mouth: Mucous membranes are very dry, cracked, lips are peeling, dry geographic tongue. Respiratory: There are no retractions, lungs are clear to auscultation. Cardiovascular: Regular rate and rhythm, no murmurs, clicks or rubs. Gastrointestinal: Abdomen is soft and non tender, no masses, bowel sounds normal. Neurological: Alert and oriented 3. Moving all extremities, slowly. Following all commands. No focal neuro deficits. Skin: Warm and dry, no rashes. Musculoskeletal: Neck is supple non tender. Extremities are nontender, nonswollen and have full range of motion. DIFFERENTIAL DIAGNOSIS: After history and physical exam differential diagnosis was considered for urosepsis and failure to thrive. Medical Decision Making Data Points Result Diagram: 09/24/17 1544 09/24/17 1544 Laboratory Hematology Test 09/24/17 15:44 09/24/17 18:05 Red Blood Count 3.33 M/uL (4.17-5.56) Mean Corpuscular Volume 103.9 fL (80.0-96.0) Mean Corpuscular Hemoglobin 34.1 pg (26.0-33.0) Mean Corpuscular Hemoglobin Concent 32.8 g/dL (32.0-36.0) Red Cell Distribution Width 13.7 % (11.5-14.5) Mean Platelet Volume 8.8 fL (7.2-11.1) Neutrophils (%) (Auto) % (39.4-72.5) Lymphocytes (%) (Auto) % (17.6-49.6) Monocytes (%) (Auto) % (4.1-12.4) Eosinophils (%) (Auto) % (0.4-6.7) Basophils (%) (Auto) % (0.3-1.4) Nucleated RBC Relative Count (auto) /100WBC Neutrophils # (Auto) K/uL (2.0-7.4) Lymphocytes # (Auto) K/uL (1.3-3.6) Monocytes # (Auto) K/uL (0.3-1.0) Eosinophils # (Auto) K/uL (0.0-0.5) Basophils # (Auto) K/uL (0.0-0.1) Nucleated RBC Absolute Count (auto) K/uL Neutrophils % (Manual) 76 % (39.4-72.5) Band Neutrophils % 2 % Lymphocytes % (Manual) 14 % (17.6-49.6) Atypical Lymphocytes % % Monocytes % (Manual) 4 % (4.1-12.4) Eosinophils % (Manual) 0 % (0.4-6.7) Basophils % (Manual) 0 % (0.3-1.4) Metamyelocytes % 2 % Myelocytes % 2 % Macrocytosis 1+ Peripheral Blood Smear Yes Y/N Prothrombin Time 14.6 seconds (12.0-14.4) Prothromb Time International Ratio 1.14 Activated Partial Thromboplast Time 31 seconds (23-35) Sodium Level 129 mmol/L (137-145) Potassium Level 1.7 mmol/L (3.5-5.0) Chloride Level 93 mmol/L (98-107) Carbon Dioxide Level 16 mmol/L (22-31) Blood Urea Nitrogen 15 mg/dl (7-18) Creatinine 1.40 mg/dl (0.52-1.04) Glomerular Filtration Rate Calc 38.1 Random Glucose 88 mg/dl (75-110) Lactate 2.1 mmol/L (0.7-2.1) Calcium Level 10.4 mg/dl (8.4-10.2) Magnesium Level 2.4 mg/dl (1.7-2.2) Total Bilirubin 1.7 mg/dl (0.2-1.3) Aspartate Amino Transf (AST/SGOT) 21 U/L (0-35) Alanine Aminotransferase (ALT/SGPT) 17 U/L (0-56) Alkaline Phosphatase 211 U/L (0-126) Total Protein 6.7 g/dl (6.3-8.2) Albumin 2.7 g/dl (3.5-5.0) Blood Gas Puncture Site Left radial Blood Gas Patient Temperature 97.5 DEGREES Arterial Blood pH 7.30 (7.35-7.45) Arterial Blood Partial Pressure CO2 < 25 mmHg (32-37) Arterial Blood Partial Pressure O2 76 mmHg (60-80) Arterial Blood HCO3 9 mmol/L (20-26) Arterial Blood Oxygen Saturation 95 % (92-100) Arterial Blood Base Excess -18.0 mmol/L Froy Test Acceptable Oxygen Liters/Minute Room air Chemistry Test 09/24/17 15:44 09/24/17 18:05 White Blood Count 12.7 k/uL (4.5-11.0) Red Blood Count 3.33 M/uL (4.17-5.56) Hemoglobin 11.4 g/dL (12.0-16.0) Hematocrit 34.6 % (34.0-47.0) Mean Corpuscular Volume 103.9 fL (80.0-96.0) Mean Corpuscular Hemoglobin 34.1 pg (26.0-33.0) Mean Corpuscular Hemoglobin Concent 32.8 g/dL (32.0-36.0) Red Cell Distribution Width 13.7 % (11.5-14.5) Platelet Count 313 K/uL (150-450) Mean Platelet Volume 8.8 fL (7.2-11.1) Neutrophils (%) (Auto) % (39.4-72.5) Lymphocytes (%) (Auto) % (17.6-49.6) Monocytes (%) (Auto) % (4.1-12.4) Eosinophils (%) (Auto) % (0.4-6.7) Basophils (%) (Auto) % (0.3-1.4) Nucleated RBC Relative Count (auto) /100WBC Neutrophils # (Auto) K/uL (2.0-7.4) Lymphocytes # (Auto) K/uL (1.3-3.6) Monocytes # (Auto) K/uL (0.3-1.0) Eosinophils # (Auto) K/uL (0.0-0.5) Basophils # (Auto) K/uL (0.0-0.1) Nucleated RBC Absolute Count (auto) K/uL Neutrophils % (Manual) 76 % (39.4-72.5) Band Neutrophils % 2 % Lymphocytes % (Manual) 14 % (17.6-49.6) Atypical Lymphocytes % % Monocytes % (Manual) 4 % (4.1-12.4) Eosinophils % (Manual) 0 % (0.4-6.7) Basophils % (Manual) 0 % (0.3-1.4) Metamyelocytes % 2 % Myelocytes % 2 % Macrocytosis 1+ Peripheral Blood Smear Yes Y/N Prothrombin Time 14.6 seconds (12.0-14.4) Prothromb Time International Ratio 1.14 Activated Partial Thromboplast Time 31 seconds (23-35) Glomerular Filtration Rate Calc 38.1 Lactate 2.1 mmol/L (0.7-2.1) Calcium Level 10.4 mg/dl (8.4-10.2) Magnesium Level 2.4 mg/dl (1.7-2.2) Total Bilirubin 1.7 mg/dl (0.2-1.3) Aspartate Amino Transf (AST/SGOT) 21 U/L (0-35) Alanine Aminotransferase (ALT/SGPT) 17 U/L (0-56) Alkaline Phosphatase 211 U/L (0-126) Total Protein 6.7 g/dl (6.3-8.2) Albumin 2.7 g/dl (3.5-5.0) Blood Gas Puncture Site Left radial Blood Gas Patient Temperature 97.5 DEGREES Arterial Blood pH 7.30 (7.35-7.45) Arterial Blood Partial Pressure CO2 < 25 mmHg (32-37) Arterial Blood Partial Pressure O2 76 mmHg (60-80) Arterial Blood HCO3 9 mmol/L (20-26) Arterial Blood Oxygen Saturation 95 % (92-100) Arterial Blood Base Excess -18.0 mmol/L Froy Test Acceptable Oxygen Liters/Minute Room air Coagulation Test 09/24/17 15:44 Prothrombin Time 14.6 seconds Prothromb Time International Ratio 1.14 Activated Partial Thromboplast Time 31 seconds EKG/Imaging EKG Interpretation 12 lead EKG: Time of EKG 1623. Rhythm: Sinus rhythm with a first-degree AV block, ventricular rate 89 bpm. Chandler: Right QRS: normal ST segments: No ST depression or elevation identified. There are some changes noted in the lateral leads, poor R-wave progression in the most recent EKG, as compared to the 02/13/2017 EKG. Could be secondary to hypokalemia. Imaging Location: [facility] - [place] Patient: Lisa Alfredo : 1955 Visit/Account:[id number] Date of Sevice: 09/24/2017 Exam type: CHEST SINGLE AP History: ?sepsis Comparison: February 13, 2017. Findings: Again noted is hyperinflation of the lung stock with emphysematous changes. Mild chronic interstitial scarring also appears relatively stable. There is no evidence of acute appearing infiltrates, pleural effusions or pulmonary edema. No evidence for pneumothorax or pneumomediastinum. The cardiac silhouette is normal in size. IMPRESSION: 1. Hyperinflation of the lung stock and chronic interstitial scarring although no evidence of acute pulmonary consolidation Report Dictated By: Andreina Belle MD at 09/24/2017 4:56 PM Report E-Signed By: Andreina Belle MD at 09/24/2017 4:57 PM [email or web address] [id number] Course/Re-evaluation Clinical Indication for ER IV: Hydration, IV Access ED Course The patient was admitted to room. A history and physical were obtained. Differential diagnoses were considered. An IV was started. A CBC, CMP, lactate and blood gas were obtained. Multiple attempts at Eason catheter were unsuccessful. The WBCs 12.7,Chemistry showing sodium 129, potassium 1.7, carbon dioxide 16, creatinine 1.4 magnesium 2.4 lactate 2.1, blood gas showing pH 7.3, PCO2 25, bicarbonate 9, UA showing urine ketones, positive nitrites, many leukocytes and urine bacteria. Eason catheter was eventually placed. Single view chest x-ray showing Hyperinflation of the lung stock and chronic interstitial scarring although no evidence of acute pulmonary consolidation. The patient was given potassium in the emergency department, a 500 mL normal saline bolus, I did speak with Dr. Padgett regarding the patient's case, he is accepted the patient into his services patient will be admitted to ICU. I did inform him that we were unable to obtain a urine up until the time she was leaving therefore no IV antibiotics were started. 09/24/2017 6:03:34 pm I did speak with Dr. Padgett the hospitalist on- call, he has accepted the patient into his services for urosepsis and hypokalemia. 09/24/2017 6:13:29 pm I did speak with the patient, I did tell her that we will be keeping her in the hospital, the patient is agreeable. Decision to Disposition Date: Sep 24, 2017 Decision to Disposition Time: 17:58 Depart Departure Latest Vital Signs Vital Signs Date Time Temp Pulse Resp B/P (MAP) Pulse Ox O2 Delivery O2 Flow Rate FiO2 09/24/17 18:05 87 18 96 09/24/17 18:00 81/58 (66) 09/24/17 15:50 97.5 Impression: Primary Impression: Hypokalemia Additional Impressions: Sepsis UTI (urinary tract infection) Condition: Improved Disposition: Admitted from ER Problem Qualifiers Additional Impressions: Sepsis Sepsis type: sepsis due to unspecified organism Qualified Codes: A41.9 - Sepsis, unspecified organism UTI (urinary tract infection) Urinary tract infection type: acute cystitis Hematuria presence: without hematuria Qualified Codes: N30.00 - Acute cystitis without hematuria ARIANNA EPDROP-BC Sep 24, 2017 16:14
[2017-09-24] MEDS ORDERED: EMS NS 0.9%(*) 1000 ML BAG 1,000 ML IV ONE (16:20)
[2017-09-24 16:27] LABS: PLATELET COUNT, AUTOMATED 313 K/uL (150-450)
--- NOTE | 2017-09-24 16:36 | EKG ---
FACILITY: [facility] PATIENT NAME: ROMELIA AWAN : [id number] MR: [id number] V: [id number] EXAM DATE: ORDERING PHYSICIAN: ARIANNA PEDRO TECHNOLOGIST: RADHA Al Reason : SEPSIS Blood Pressure : / mmHG Vent. Rate : 089 BPM Atrial Rate : 089 BPM P-R Int : 240 ms QRS Dur : 108 ms QT Int : 328 ms P-R-T Axes : 085 125 074 degrees QTc Int : 399 ms Sinus rhythm with sinus arrhythmia with 1st degree AV block Right axis deviation Pulmonary disease pattern ST and T wave abnormality, consider anterior ischemia Abnormal ECG When compared with ECG of 13-FEB-2017 16:43, IL interval has increased Borderline criteria for Inferior infarct are now present Non-specific change in ST segment in Anterior leads T wave inversion now evident in Anterior leads Confirmed by Micheal Davis ([id number]) on 09/25/2017 12:24:09 AM Referred By: Confirmed By:Micheal Marley
[2017-09-24 16:41] LABS: INR 1.14
--- NOTE | 2017-09-24 17:01 | RADIOLOGY IMAGING REPORT ---
FACILITY: [facility] PATIENT NAME: Lisa Alfredo : 1955 MR: [id number] V: [id number] EXAM DATE: ORDERING PHYSICIAN: ARIANNA PEDRO TECHNOLOGIST: Location: [facility] [place] Patient: Lisa Alfredo : 1955 Visit/Account:[id number] Date of Sevice: 09/24/2017 Exam type: CHEST SINGLE AP History: ?sepsis Comparison: February 13, 2017. Findings: Again noted is hyperinflation of the lung stock with emphysematous changes. Mild chronic interstiti al scarring also appears relatively stable. There is no evidence of acute appearing infiltrates, ple ural effusions or pulmonary edema. No evidence for pneumothorax or pneumomediastinum. The cardiac s ilhouette is normal in size. IMPRESSION: 1. Hyperinflation of the lung stock and chronic interstitial scarring although no evidence of acute pulmonary consolidation Report Dictated By: Andreina Belle MD at 09/24/2017 4:56 PM Report E-Signed By: Andreina Belle MD at 09/24/2017 4:57 PM WSN:[email or web address]
[2017-09-24] MEDS: KCL (*) 20 MEQ/100 ML PREMIX 100 ML IV SCH ×2 (17:59→19:45)
[2017-09-24] MEDS ORDERED: ACETAMINOPHEN 325 MG TAB PO PRN (19:40)
[2017-09-24] MEDS ORDERED: INFLUENZA VIRUS VAC 0.5 ML SYR IM ONLY ONE (19:40)
[2017-09-24] MEDS ORDERED: ONDANSETRON 4 MG/2 ML VIAL IVP PRN (19:40)
[2017-09-24] MEDS ORDERED: FLUSH 10 ML SYR IVP PRN (19:40)
[2017-09-24] MEDS: POTASSIUM CHL PWDR 20 MEQ PKT PO SCH ×2 (20:11→22:44)
[2017-09-24] MEDS ORDERED: KCL 2 MEQ/ML 20 MEQ/10 ML VIAL 40 MEQ in NS(*) 0.9% 1000 ML BAG 1,000 ML IV SCH ×2 (21:00→21:48)
[2017-09-24] MEDS: HEPARIN (PORC) 5000 UN/ML VIAL SC SCH (21:12)
--- NOTE | 2017-09-24 22:29 | History & Physical ---
History of Present Illness Chief Complaint Weakness/Lethargy History of Present Illness 62F presented to ER after EMS was called by daughter. Reports she was so weak she could not get out of bed today. Found to have elevated alk phos, bilirubin, severe hypokalemia in ER. Admitted fro further evaluation and treatment to ICU. Appears cachectic, lethargic but answers questions appropriately. Daughter reports significant weight loss, decrease in appetite and that her PCP is trying to get imaging for evaluation of GI malignancy. Reports pain with urination. Review shows elevated CEA in 2017. History Problems: (1) Abnormal weight loss Status: Chronic (2) Pancreatitis Status: Chronic Home Meds Reported Medications Cholecalciferol (Vitamin D3) (VITAMIN D3) 1,000 Unit Tablet, 1 TAB PO QDAY, TAB 07/23/17 Biotin (BIOTIN) 2,500 Mcg Capsule, 5000 MCG PO QDAY, CAPSULE 07/23/17 Potassium Gluconate (POTASSIUM) 99 Mg Tablet, 1 TAB PO QDAY 07/23/17 Ibuprofen (IBUPROFEN) 200 Mg Capsule, 3 CAP PO QAM, CAPSULE 07/23/17 Simvastatin (SIMVASTATIN) 20 Mg Tablet, 1 TAB PO HS, TAB 07/23/17 Mu-Vits-Min Th/Lycopene/Lutein (CENTRUM SILVER TABLET) 1 Each Tablet, 1 TAB PO 07/23/17 Promethazine Hcl (PROMETHAZINE HCL) 25 Mg Tablet, 25 MG PO QID for Nausea, TAB 06/24/17 Pantoprazole Sodium (PANTOPRAZOLE SODIUM) 40 Mg Tablet.dr, 40 MG PO QDAY, TAB.SR 06/24/17 Fluticasone/Salmeterol (ADVAIR 250-50 DISKUS) 1 Each Disk.w.dev, 1 EACH IH BID 06/24/17 Allergies: Coded Allergies: No Known Drug Allergies (Verified , 09/24/17) Patient History: Patient reports no known family medical history. Hx Smoking: Yes (1/2 ppdx 20 yrs ) Smoking Status: Current: Every Day Smoker Hx Substance Use Disorder: No Social Drug Use: Never Review of Systems All Systems Reviewed/Normal: Yes, Except as Noted Constitutional: Weight Loss, No Fever Neurological: Weakness Cardiovascular: No Chest Pain Respiratory: No Shortness of Breath Gastrointestinal: Nausea Genitourinary: Dysuria Musculoskeletal: Impaired Mobility Exam Vital Signs Vital Signs Date Time Temp Pulse Resp B/P (MAP) Pulse Ox O2 Delivery O2 Flow Rate FiO2 09/24/17 20:46 High-Flow Nasal Cannula 6.0 09/24/17 20:45 86 09/24/17 20:36 24 09/24/17 18:35 89 09/24/17 18:30 94/65 (75) 09/24/17 15:50 97.5 General Appearance: Alert, Awake Neuro: No Gross deficits Eyes: PERRLA ENT: Other (dry mucous membranes) Neck: No Masses Cardiovascular: Normal Rhythm & Peripheral Pulses, No Edema Respiratory: No Respiratory Distress Chest: No Tenderness GI: Abd Soft and Non-Tender Lymph: Cervical Nodes Benign Musculoskeletal: No Weakness/Pain Extremities: Soft and Non Tender, Warm, Perfused, No Edema Integumentary: Skin Intact without Lesion / Mass Medical Decision Making Data Points Result Diagram: 09/24/17 1544 09/24/17 1544 EKG / Imaging Monitor Interpretation: Normal Sinus Rhythm (w/1st degree block) Assessment and Plan Problems: (1) Hypokalemia Status: Acute Assessment & Plan: Severe, K 1.7 on admission. IV replacement, attempted PO also but not tolerated. Monitor on telemetry. (2) High anion gap metabolic acidosis Assessment & Plan: Unclear etiology, possibly starvation ketosis. Uncompensated. AG 20 (corrected 23), bicarb 16 on admission. Lactic acid mild elevation 2.2. ABG pH 7.30 (3) UTI (urinary tract infection) Status: Acute Assessment & Plan: Begin ceftriaxone, await Cx results. (4) Anemia Status: Chronic Assessment & Plan: Macrocytic, Iron panel, ferritin, b12 and folate pending. (5) Abnormal weight loss Status: Chronic Assessment & Plan: Elevated CEA in 2017, decreased PO intake partially cause. High concern for malignancy given previous findings and presentation. Will get GGT to evaluate alk phos elevation. RUQ US ordered. (6) Chronic pancreatitis Status: Acute Assessment & Plan: Concern for possible mass causing pancreatitis given Hx related by family. RUQ US to evaluate for ductal dilatation. (7) Hypovolemia Assessment & Plan: IV NS with KCl infusing. Will reevaluate with labs and adjust appropriately. Venous Thromboembolism Antithrombotics Is Pt On Any Antithrombotics?: Yes Exam Sepsis Risk: No Definite Risk MARCUM SHANE RARIETA DO Sep 24, 2017 22:29
[2017-09-25] VITALS (51 sets, daily range): BP systolic 53–129; BP diastolic 39–82; Ht 162.6 cm; Wt 32.2 kg
[2017-09-25] MEDS: NS(*) 0.9% 1000 ML BAG 1,000 ML IV PRN ×2 (01:19→09:48)
[2017-09-25] MEDS: KCL (*) 20 MEQ/100 ML PREMIX 100 ML IV SCH ×4 (01:19→14:48)
[2017-09-25 05:58] LABS: PLATELET COUNT, AUTOMATED 295 K/uL (150-450)
[2017-09-25] MEDS ORDERED: cefTRIAXone 1 GM VIAL IVP SCH (08:00)
[2017-09-25] MEDS ORDERED: KETAMINE HCL 500 MG/5 ML VIAL IVP ONE (08:10)
[2017-09-25] MEDS ORDERED: VANCOMYCIN(*) 1 GM VIAL 1 GM in NS(*) 0.9% 250 ML BAG 250 ML IVPB ONE (08:25)
[2017-09-25] MEDS ORDERED: SODIUM BICAR(* 8.4% 50 ML SYR 50 ML SYR IV ONE (08:25)
[2017-09-25] MEDS ORDERED: NOREPINE BITAR* 4 MG/4 ML AMP 4 MG in D5W(*) 250 ML BAG 246 ML IV PRN ×2 (09:05→09:25)
--- NOTE | 2017-09-25 09:06 | Hospitalist Progress Note ---
Subjective Progress Notes Subjective She is confused and not answering questions. BP low this morning and not responding to boluses. Physical Exam Vital Signs Date Time Temp Pulse Resp B/P (MAP) Pulse Ox O2 Delivery O2 Flow Rate FiO2 09/25/17 06:00 84 26 69/50 (56) 89 High-Flow Nasal Cannula 6.0 09/25/17 04:30 96.0 General Appearance: Other (Eyes closed. Breathing comfortably. Cachectic) Neuro: Other (Not following commands or answering questions. RAMIREZ.) Cardiovascular: Regular Rate and Rhythm Respiratory: Clear to Auscultation Extremities: No Edema Result Diagram: 09/25/17 0544 09/25/17 05 Monitor Interpretation: Normal Sinus Rhythm (w/1st degree block) Assessment and Plan Problems: (1) Sepsis Status: Acute Assessment & Plan: Likely, source is UTI. SBP in the 60's and not responding to fluids. Starting norepinephrine and hydrocortisone. Will continue Ceftriaxone and add Vancomycin load. Will follow vancomycin random levels. Will get a CT of the abd/pelvis to rule out abdominal source/ureteral obstruction. (2) Hypokalemia Status: Resolved Assessment & Plan: Severe, K 1.7 on admission. IV replacement. Mg wnl. Work up ongoing. Apparently, a long standing issue per family. (3) High anion gap metabolic acidosis Assessment & Plan: Unclear etiology, possibly starvation ketosis. Uncompensated. AG 20 (corrected 23), bicarb 16 on admission and now 5. Lactic acid now normal. VBG is 7.03. Will give an amp of bicarb and follow blood gas. (4) UTI (urinary tract infection) Status: Acute Assessment & Plan: Begin ceftriaxone, await Cx results. Adding vancomycin. (5) Anemia Status: Chronic Assessment & Plan: Macrocytic, Iron panel, ferritin, b12 and folate pending. No evidence of bleeding. (6) Abnormal weight loss Status: Chronic Assessment & Plan: Elevated CEA in 2017, decreased PO intake partially cause. High concern for malignancy given previous findings and presentation. Will get GGT to evaluate alk phos elevation. CT of abd/pelvis ordered. (7) Chronic pancreatitis Status: Acute Assessment & Plan: Concern for possible mass causing pancreatitis given Hx related by family. CT of abd/pelvis to evaluate for ductal dilatation. (8) Hypovolemia Assessment & Plan: Hydrated based on sepsis protocol. BP still low and creatinine unchanged. See above. Exam Sepsis Risk: No Definite Risk Problem Qualifiers (1) Sepsis: Sepsis type: sepsis due to unspecified organism Qualified Codes: A41.9 - Sepsis, unspecified organism TORRES HAQ MD Sep 25, 2017 09:05
--- NOTE | 2017-09-25 09:33 | Procedure Note ---
Central Line Procedure Note Indication for Central Line: Vasopressors and multiple IV fluids needed. Consent Signed: Yes Central Line Lumen: Triple Central Line Procedure: Chlorhexidine Prep, Sterile Drapes Applied, Sterile Dressing Applied Central Line Position: R Internal Jugular Anesthesia Used: 1% Lidocaine CC's of Anesthesia: 4 Complications: None Central Line Post Position: Sutured, Confirmed Blood Return, Position Confirmed w/CXR Comment 35mg Ketamine used to help relax patient, modified Seldinger technique used. Sutured at depth 19cm to skin. Patient tolerated the procedure well, no immediate post procedure complications. SHANE CAMACHO DO Sep 25, 2017 09:33
[2017-09-25] MEDS: HEPARIN (PORC) 5000 UN/ML VIAL SC SCH (09:39)
[2017-09-25] MEDS: HYDROCORTISONE 100 MG/2 ML IVP SCH ×2 (09:39→17:24)
--- NOTE | 2017-09-25 10:08 | RADIOLOGY IMAGING REPORT ---
FACILITY: [facility] PATIENT NAME: Lisa Alfredo : 1955 MR: [id number] V: [id number] EXAM DATE: ORDERING PHYSICIAN: TORRES HAQ TECHNOLOGIST: Location: [facility] Patient: Lisa Alfredo : 1955 Visit/Account:[id number] Date of Sevice: 09/25/2017 Exam type: CHEST SINGLE AP History: central line placement Comparison: September 24, 2017. Findings: There has been placement of a right sided central venous catheter the distal tip projects at the atri al caval junction. No pneumothorax is seen. Additional tubing projects over the neck. Hyperinflation lung stock with emphysematous changes and mild chronic interstitial scarring appears unchanged. The cardiac silhouette is normal in size. IMPRESSION: 1. Placement of a right-sided central venous catheter with distal tip projecting over the atriocaval junction. No evidence of pneumothorax Emphysematous changes but the lungs and mild chronic interstitial scarring unchanged Report Dictated By: Andreina Belle MD at 09/25/2017 10:02 AM Report E-Signed By: Andreina Belle MD at 09/25/2017 10:04 AM WSN:[email or web address]
[2017-09-25] MEDS ORDERED: SODIUM BICAR 8.4%* 50 MEQ/50ML 150 MEQ in D5W(*) 1000 ML BAG 1,000 ML IV SCH (11:50)
[2017-09-25] MEDS ORDERED: NS(*) 0.9% 500 ML BAG 500 ML IV PRN (11:55)
--- NOTE | 2017-09-25 11:58 | RADIOLOGY IMAGING REPORT ---
FACILITY: [facility] [place] PATIENT NAME: Lisa Alfredo : 1955 MR: [id number] V: EXAM DATE: ORDERING PHYSICIAN: TORRES HAQ TECHNOLOGIST: Location: [facility] Patient: Lisa Alfredo : 1955 Visit/Account:[id number] Date of Sevice: 09/25/2017 ABDOMEN/PELVIS W/O CONTRAST HISTORY: sepsis TECHNIQUE: Axial images acquired through the abdomen/pelvis. Coronal and sagittal reformatting also performed. No IV contrast administered. Dose Lowering Technique One of the following dose optimization techniques was utilized in the performance of this exam: Autom ated exposure control; adjustment of the mA and/or kV according to the patient's size; or use of an i terative reconstruction technique. Specific details can be referenced in the facility's radiology C T exam operational policy. COMPARISON: June 25, 2017 FINDINGS: Visualized lung bases: Centrilobular emphysema again seen throughout the lungs. There has been inte rval development of small posterior layering bilateral pleural effusions and patchy airspace consolid ation in the left lower lobe which may represent compressive atelectasis and/or developing infiltrate . There is some motion artifact present Hepatobiliary: Postsurgical changes from a cholecystectomy. There is diffuse fatty infiltration of the liver. Spleen: Negative. Adrenals: Negative. Pancreas: Extensive coarse calcification seen within the pancreas consistent with chronic pancreatit is. The subcentimeter cystic area in the head of the pancreas is not as well identified on the curre nt examination due to motion artifact, lack of intravenous contrast and artifacts from the patient's right arm which is draped over the anterior abdomen and pelvis Kidneys ureters and bladder: Pelvic contents not ideally visualized due to artifacts from orthopedic hardware in the right hip. There is a Eason catheter decompressing the urinary bladder. There is a large amount of air within the bladder which could be related to the Eason catheter. Also noted fowler tamara are numerous air bubbles within the anterior wall and floor the bladder concerning for emphysemat ous cystitis. There is also a suggestion of some extraluminal air anterior to the dome of the bladde r and possibly tracking along the floor the pelvis. This raises the potential concern for necrotizin g fasciitis. There is moderate perinephric stranding bilaterally. There is a 2 mm calcification either within the mid right ureter or immediately adjacent to the mid right ureter although no associated hydronephros is Genitalia: Pelvic contents not ideally seen due to numerous artifacts GI: There is diverticulosis left-sided colon although no CT evidence of acute diverticulitis Vessels/spaces/nodes: There is a small amount of free pelvic fluid. Moderate vascular calcination o ccasions are present Bones/soft tissues: There are postsurgical changes the right hip and spondylotic changes in the lumb ar spine Additional findings: None pertinent. IMPRESSION: Large amount of air noted within the bladder which could in part be related to the Eason catheter. T here is however numerous air bubbles within the anterior wall and floor the bladder concerning for em physematous cystitis. There is also suggestion of some extraluminal air anterior to the dome of the bladder possibly tracking along the floor the pelvis. This raises the potential concern for necrotiz ing fasciitis. 2 mm calcification either within the mid right ureter or immediately adjacent to the mid right ureter although no evidence of hydronephrosis Diverticulosis left-sided colon although no CT evidence of acute diverticulitis Centrilobular emphysema throughout the lungs Interval development of small posterior layering bilateral pleural effusions and patchy airspace cons olidation left lower lobe which may represent compressive atelectasis and or developing infiltrate Diffuse fatty infiltration of the liver Extensive coarse calcifications within the pancreas consistent with chronic pancreatitis Results were called to TORRES HAQ at 09/25/2017 11:52 AM. Report Dictated By: Andreina Belle MD at 09/25/2017 11:29 AMReport E-Signed By: Andreina Belle MD at 09/25/2017 11:54 AM WSN:[email or web address]
[2017-09-25] MEDS ORDERED: NOREPINE BITAR* 4 MG/4 ML AMP 8 MG in D5W(*) 500 ML BAG 492 ML IV PRN (15:00)
[2017-09-25 16:10] LABS: PLATELET COUNT, AUTOMATED 295 K/uL (150-450)
--- NOTE | 2017-09-25 17:27 | RADIOLOGY IMAGING REPORT ---
FACILITY: [facility] PATIENT NAME: Lisa Alfredo : 1955 MR: [id number] V: EXAM DATE: ORDERING PHYSICIAN: TORRES HAQ TECHNOLOGIST: Location: [facility] [place] Patient: Lisa Alfredo : 1955 Visit/Account:[id number] Date of Sevice: 09/25/2017 EXAMINATION: CT HEAD WITHOUT CONTRAST COMPARISON: None available HISTORY: Altered mental status. PROCEDURE: Noncontrast CT from the vertex through the skull base. One of the following dose optimizat ion techniques was utilized in the performance of this exam: Automated exposure control; adjustment o f the mA and/or kV according to the patient's size; or use of an iterative reconstruction technique. Specific details can be referenced in the facility's radiology CT exam operational policy. FINDINGS: Brain volume: Age-appropriate. Hemorrhage/extra-axial fluid: None. Mass effect/midline shift/edema: None. Ischemia: Falcon-white differentiation is preserved. Ventricles and basal cisterns: Within normal limits. Posterior fossa: Negative. Vessels: Negative. Calvarium, skull base, and scalp: Negative. Visualized sinuses and orbits: Left maxillary sinus mild mucosal inflammation. Radiopaque foreign bod ies along the left maxillary sinus posterior and anterior tran. Orbital contents are unremarkable. IMPRESSION: 1. No intracranial hemorrhage or mass effect. 2. No CT findings of acute ischemia. 3. Multiple metallic foreign bodies along the left maxillary sinus posterior and anterior tran. Marimar elation with any history of trauma or surgery is recommended. Report Dictated By: Justin Reyes MD at 09/25/2017 5:18 PM Report E-Signed By: Justin Reyes MD at 09/25/2017 5:23 PM WSN:[id number]
--- NOTE | 2017-09-25 17:32 | Hospitalist Depart ---
Discharge Summary Reason for Hosp/Final Diag: (1) Sepsis Status: Acute Hospital Course & Plan: Likely, source is UTI. SBP in the 60's and did not improve with fluid resuscitation by sepsis protocol. Stable on norepinephrine and hydrocortisone. The patient had a RIJ placed (initially, it was at 19cm from the skin, but has been moved back to 15cm based on the CXR). Will continue Ceftriaxone and Vancomycin load given this morning with the plan to follow vancomycin random levels. CT of the abd/pelvis was concerning for air in the anterior bladder wall and anterior to the bladder with the possibility of it tracking into the pelvis. The patient has a soft, non-distended abdomen. The has no erythema/swelling of the vaginal/peritoneal area and has no obvious tenderness with palpation. Dr. Villafuerte (urology) reviewed the films with the radiologist and felt that the patient should be transferred for the possibility that she would need an extensive surgery or CT guided drainage. Dr. Rice (general surgery) reviewed the films. He has never seen necrotizing fascitis that didn't originate from the skin. However, if this is necrotizing fascitis and does originate from the bladder, the a Urological team would be required to take care of her, which is beyond the scope our hospital's abilities. I spoke with Dr. Min (fire marshal). She was willing to accept the patient to the medical ICU, but wanted Dr. Rice to review the films first (which he did). (2) Hypokalemia Status: Resolved Hospital Course & Plan: Severe, K 1.7 on admission. IV replacement. Mg wnl. Work up ongoing. Apparently, a long standing issue, per family. (3) High anion gap metabolic acidosis Hospital Course & Plan: Secondary to sepsis. AG 20 (corrected 23), bicarb 16 on admission. Lactic acid was normal, but slightly increased to 2.2. pH and bicarb improving with 1 amp of bicarbonate and then IVF with D5W and 3 amps of bicarb. (4) UTI (urinary tract infection) Status: Acute Hospital Course & Plan: Begin ceftriaxone, await Cx results. Adding vancomycin. (5) Anemia Status: Chronic Hospital Course & Plan: Macrocytic, Iron panel, ferritin, b12 and folate pending. No evidence of bleeding. (6) Abnormal weight loss Status: Chronic Hospital Course & Plan: Elevated CEA in 2017, decreased PO intake partially cause. High concern for malignancy given previous findings and presentation. Will get GGT to evaluate alk phos elevation. CT of abd/pelvis c/w chronic pancreatitis. (7) Chronic pancreatitis Status: Acute Hospital Course & Plan: Concern for possible mass causing pancreatitis given Hx related by family. CT of abd/pelvis to evaluate for ductal dilatation. (8) Hypovolemia Hospital Course & Plan: Hydrated based on sepsis protocol. BP still low and creatinine slowly improving. See above. Departure Weight (Pounds): 71 Weight (Ounces): 2.0 Result Diagram: 09/25/17 0544 09/25/17 1115 Item Value Date Time White Blood Count 19.0 k/uL H 09/25/17 1603 Hemoglobin 9.3 g/dL L 09/25/17 1603 Platelet Count 295 K/uL 09/25/17 1603 Neutrophils (%) (Auto) 91.5 % H 09/25/17 1603 Arterial Blood pH 7.27 L 09/25/17 1628 Arterial Blood Partial Pressure CO2 < 25 mmHg L 09/25/17 1628 Arterial Blood Partial Pressure O2 49 mmHg *L 09/25/17 1628 Arterial Blood HCO3 8 mmol/L *L 09/25/17 1628 Arterial Blood Oxygen Saturation 80 % L 09/25/17 1628 Sodium Level 138 mmol/L 09/25/17 1603 Potassium Level 4.3 mmol/L 09/25/17 1603 Chloride Level 113 mmol/L H 09/25/17 1603 Carbon Dioxide Level 9 mmol/L *L 09/25/17 1603 Blood Urea Nitrogen 15 mg/dl 09/25/17 1603 Creatinine 1.20 mg/dl H 09/25/17 1603 Glomerular Filtration Rate Calc 45.5 09/25/17 1603 Random Glucose 135 mg/dl H 09/25/17 1603 Lactate 2.2 mmol/L H 09/25/17 1603 Item Value Date Time White Blood Count 12.7 k/uL H 09/24/17 1544 White Blood Count 15.9 k/uL H 09/25/17 0544 Hemoglobin 11.4 g/dL L 09/24/17 1544 Hemoglobin 9.1 g/dL L 09/25/17 0544 Neutrophils % (Manual) 76 % H 09/24/17 1544 Neutrophils % (Manual) 70 % 09/25/17 0544 Band Neutrophils % 2 % 09/24/17 1544 Band Neutrophils % 19 % 09/25/17 0544 Prothromb Time International Ratio 1.14 09/24/17 1544 Activated Partial Thromboplast Time 31 seconds 09/24/17 1544 Arterial Blood pH 7.30 L 09/24/17 1805 Arterial Blood Partial Pressure CO2 < 25 mmHg L 09/24/17 1805 Arterial Blood Partial Pressure O2 76 mmHg 09/24/17 1805 Arterial Blood HCO3 9 mmol/L *L 09/24/17 1805 Venous Blood pH 7.03 L 09/25/17 0702 Venous Blood Partial Pressure CO2 < 25 mmHg 09/25/17 07 Venous Blood Partial Pressure O2 < 35 mmHg 09/25/17 07 Venous Blood HCO3 6 mmol/L 09/25/17 0702 Total Bilirubin 1.0 mg/dl 09/25/17 0544 Aspartate Amino Transf (AST/SGOT) 14 U/L 09/25/17 0544 Alanine Aminotransferase (ALT/SGPT) 16 U/L 09/25/17 0544 Alkaline Phosphatase 150 U/L H 09/25/17 0544 Lactate 1.8 mmol/L 09/25/17 0702 Arterial Blood pH 7.16 *L 09/25/17 1110 Arterial Blood Partial Pressure CO2 < 25 mmHg L 09/25/17 1110 Arterial Blood Partial Pressure O2 74 mmHg 09/25/17 1110 Arterial Blood HCO3 7 mmol/L *L 09/25/17 1110 Blood Urea Nitrogen 5 mg/dl L 02/13/17 1709 Creatinine 0.60 mg/dl 02/13/17 1709 Blood Urea Nitrogen 15 mg/dl 09/24/17 1544 Creatinine 1.40 mg/dl H 09/24/17 1544 Potassium Level 1.7 mmol/L *L 09/24/17 1544 Sodium Level 129 mmol/L L 09/24/17 1544 Chloride Level 93 mmol/L L 09/24/17 1544 Carbon Dioxide Level 16 mmol/L L 09/24/17 1544 Calcium Level 10.4 mg/dl H 09/24/17 1544 Lactate 2.1 mmol/L 09/24/17 1544 Magnesium Level 2.4 mg/dl H 09/24/17 1544 Total Bilirubin 1.7 mg/dl H 09/24/17 1544 Aspartate Amino Transf (AST/SGOT) 21 U/L 09/24/17 1544 Alanine Aminotransferase (ALT/SGPT) 17 U/L 09/24/17 1544 Alkaline Phosphatase 211 U/L H 09/24/17 1544 Total Protein 6.7 g/dl 09/24/17 1544 Albumin 2.7 g/dl L 09/24/17 1544 Ferritin 473 ng/ml H 09/25/17 0030 Iron Level 76 ug/dl 09/25/17 0030 Total Iron Binding Capacity 140 ug/dl L 09/25/17 0030 Percent Iron Saturation 54.3 % 09/25/17 0030 Blood Urea Nitrogen 14 mg/dl 09/25/17 0030 Creatinine 1.30 mg/dl H 09/25/17 0030 Carbon Dioxide Level 9 mmol/L *L 09/25/17 0030 Chloride Level 111 mmol/L H 09/25/17 0030 Potassium Level 3.1 mmol/L L 09/25/17 0030 Sodium Level 134 mmol/L L 09/25/17 0030 Random Glucose 88 mg/dl 09/25/17 0030 Sodium Level 137 mmol/L 09/25/17 0544 Potassium Level 4.5 mmol/L 09/25/17 0544 Carbon Dioxide Level 5 mmol/L *L 09/25/17 0544 Blood Urea Nitrogen 14 mg/dl 09/25/17 0544 Chloride Level 113 mmol/L H 09/25/17 0544 Creatinine 1.40 mg/dl H 09/25/17 0544 Glomerular Filtration Rate Calc 38.1 09/25/17 0544 Random Glucose 87 mg/dl 09/25/17 0544 Sodium Level 138 mmol/L 09/25/17 1115 Potassium Level 3.5 mmol/L 09/25/17 1115 Chloride Level 116 mmol/L H 09/25/17 1115 Carbon Dioxide Level 6 mmol/L *L 09/25/17 1115 Blood Urea Nitrogen 14 mg/dl 09/25/17 1115 Creatinine 1.20 mg/dl H 09/25/17 1115 Glomerular Filtration Rate Calc 45.5 09/25/17 1115 Random Glucose 132 mg/dl H 09/25/17 1115 Total Bilirubin 0.9 mg/dl 09/25/17 1115 Aspartate Amino Transf (AST/SGOT) 15 U/L 09/25/17 1115 Alanine Aminotransferase (ALT/SGPT) 12 U/L 09/25/17 1115 Alkaline Phosphatase 164 U/L H 09/25/17 1115 Troponin I < 0.012 ng/ml 09/25/17 0702 Total Creatine Kinase 28 U/L L 09/25/17 0030 Urine RBC 24 /HPF 09/24/17 1837 Urine WBC 23 /HPF 09/24/17 183 Urine Squamous Epithelial Cells Few /LPF 09/24/17 183 Urine Bacteria Many /HPF H 09/24/17 183 Urine Leukocyte Esterase Trace H 09/24/17 183 Urine Nitrite Positive H 09/24/17 183 Urine Ketones 20 mg/dL H 09/24/17 183 Urine Blood Moderate 09/24/17 183 Lymphocytes % (Manual) 14 % L 09/24/17 1544 Lymphocytes % (Manual) 4 % L 09/25/17 0544 Imaging 09/25/[address] - 1. No intracranial hemorrhage or mass effect. 2. No CT findings of acute ischemia. 3. Multiple metallic foreign bodies along the left maxillary sinus posterior and anterior tran. Correlation with any history of trauma or surgery is recommended. 09/25/17 CXR - 1. Placement of a right-sided central venous catheter with distal tip projecting over the atriocaval junction. No evidence of pneumothorax Emphysematous changes but the lungs and mild chronic interstitial scarring unchanged 09/25/17 Abd/Pelvis CT - Large amount of air noted within the bladder which could in part be related to the Eason catheter. There is however numerous air bubbles within the anterior wall and floor the bladder concerning for emphysematous cystitis. There is also suggestion of some extraluminal air anterior to the dome of the bladder possibly tracking along the floor the pelvis. This raises the potential concern for necrotizing fasciitis. 2 mm calcification either within the mid right ureter or immediately adjacent to the mid right ureter although no evidence of hydronephrosis Diverticulosis left-sided colon although no CT evidence of acute diverticulitis Centrilobular emphysema throughout the lungs Interval development of small posterior layering bilateral pleural effusions and patchy airspace consolidation left lower lobe which may represent compressive atelectasis and or developing infiltrate Diffuse fatty infiltration of the liver Extensive coarse calcifications within the pancreas consistent with chronic pancreatitis 09/24/17 CXR - 1. Hyperinflation of the lung stock and chronic interstitial scarring although no evidence of acute pulmonary consolidation EKG Vent. Rate : 089 BPM Atrial Rate : 089 BPM P-R Int : 240 ms QRS Dur : 108 ms QT Int : 328 ms P-R-T Axes : 085 125 074 degrees QTc Int : 399 ms Sinus rhythm with sinus arrhythmia with 1st degree AV block Right axis deviation Pulmonary disease pattern ST and T wave abnormality, consider anterior ischemia Abnormal ECG When compared with ECG of 13-FEB-2017 16:43, [place] interval has increased Borderline criteria for Inferior infarct are now present Non-specific change in ST segment in Anterior leads T wave inversion now evident in Anterior leads Confirmed by Micheal Davis ([id number]) on 09/25/2017 12:24:09 AM Condition: Critical Discharge Instructions Home Meds Reported Medications Cholecalciferol (Vitamin D3) (VITAMIN D3) 1,000 Unit Tablet, 1 TAB PO QDAY, TAB 07/23/17 Biotin (BIOTIN) 2,500 Mcg Capsule, 5000 MCG PO QDAY, CAPSULE 07/23/17 Potassium Gluconate (POTASSIUM) 99 Mg Tablet, 1 TAB PO QDAY 07/23/17 Ibuprofen (IBUPROFEN) 200 Mg Capsule, 3 CAP PO QAM, CAPSULE 07/23/17 Simvastatin (SIMVASTATIN) 20 Mg Tablet, 1 TAB PO HS, TAB 07/23/17 Mu-Vits-Min Th/Lycopene/Lutein (CENTRUM SILVER TABLET) 1 Each Tablet, 1 TAB PO 07/23/17 Promethazine Hcl (PROMETHAZINE HCL) 25 Mg Tablet, 25 MG PO QID for Nausea, TAB 06/24/17 Pantoprazole Sodium (PANTOPRAZOLE SODIUM) 40 Mg Tablet.dr, 40 MG PO QDAY, TAB.SR 06/24/17 Fluticasone/Salmeterol (ADVAIR 250-50 DISKUS) 1 Each Disk.w.dev, 1 EACH IH BID 06/24/17 Venous Thromboembolism Antithrombotics Is Pt On Any Antithrombotics?: Yes Problem Qualifiers (1) Sepsis: Sepsis type: sepsis due to unspecified organism Qualified Codes: A41.9 - Sepsis, unspecified organism TORRES HAQ MD Sep 25, 2017 17:32
== END 2017-09-25 18:30 | disposition short-term general hospital (02) | DRG 872 ==
LOC: ER 15:54 → ICU 18:09
PROVIDERS: ADMIT Internal Medicine; ATTEND Internal Medicine
PROC: 02HV33Z Insertion of Infusion Device into Superior Vena Cava, Percutaneous Approach (ICD-10-PCS; principal; 2017-09-25)
DX: A41.9 Sepsis, unspecified organism (principal); N30.00 Acute cystitis without hematuria; R64 Cachexia; Z68.1 Body mass index [BMI] 19.9 or less, adult; K86.1 Other chronic pancreatitis; E87.2 Acidosis; E87.6 Hypokalemia; E86.1 Hypovolemia; E88.89 Other specified metabolic disorders; T73.0XXA Starvation, initial encounter; D53.9 Nutritional anemia, unspecified
CPT/HCPCS: 36415; 36600; 70450; 71045; 74176; 81001; 82040; 82247; 82310; 82374; 82378; 82435; 82550; 82565; 82607; 82728; 82746; 82803; 82947; 82977; 83540; 83550; 83605; 83735; 84075; 84132; 84155; 84295; 84450; 84460; 84484; 84520; 85025; 85610; 85730; 87040; 87088; 93005; A4353; C1758; J0696; J1644; J1720; J3370; J3480; J7030; J7040; J7050; J7060; J7070

== ENCOUNTER → 2017-09-24 | Outpatient (CLI) | payer SELFPAY ==
[~2017-09-24] MED LIST changes: +IBUP-136 PO; -IBUP200C71 PO
[2017-09-25 14:00] VITALS: BMI 12.2
== END ==
LOC: AMB 15:26
PROVIDERS: ATTEND Nurse Practitioner
DX: R53.1 Weakness (principal); R41.82 Altered mental status, unspecified; R69 Illness, unspecified
CPT/HCPCS: A0425; A0427

== ENCOUNTER → 2017-09-25 | Outpatient (CLI) | payer SELFPAY ==
[2017-09-25 14:00] VITALS: BMI 12.2
== END ==
LOC: AMB 18:01
PROVIDERS: ATTEND Nurse Practitioner
DX: A41.9 Sepsis, unspecified organism (principal); R53.83 Other fatigue; R09.02 Hypoxemia
CPT/HCPCS: A0425; A0433